=== PATIENT | female | born 1995 | race Caucasian/White ===

== ENCOUNTER 2022-09-21 16:34 | Outpatient (REF) | payer OTHER, SELFPAY ==
[2022-09-21 17:23] LABS: Influenza A PCR NEGATIVE (Negative); Influenza B PCR NEGATIVE (Negative); Resp Syncy Virus RNA Qual PCR NEGATIVE (Negative); SARS COV2 PCR INHOUSE NEGATIVE (Negative)
== END 2022-09-21 16:35 | disposition home or self-care (01) ==
LOC: HO.LNP 16:34
PROVIDERS: Visit Provider Physician Assistant
DX: Z20.822 Contact with and (suspected) exposure to COVID-19 (principal); B34.9 Viral infection, unspecified
CPT/HCPCS: 0241U

== ENCOUNTER 2023-09-04 13:10 | Outpatient (AMB) | payer OTHER, SELFPAY ==
[2023-09-04 13:49] VITALS: BP 110/68; PULSE 85; TEMP 36.5; O2SAT 98; BMI 33.3
--- NOTE | 2023-09-04 13:49 | AM.OFFWIN_ITS ---
Intake Vital Signs 09/04/23 13:49 Height 5 ft Weight 77.281 kg BMI 33.3 BP 110/68 Blood Pressure Location Rt brachial Position Sitting Pulse 85 Pulse Source Pulse Oximeter Temp 97.7 F Temp Source Temporal Artery Scan Pulse Oximetry (%) 98 Oxygen Delivery Method Room Air Intake Visit Reasons: EP, congestion, cough ([phone]) Intake Note: pt is here for c/o cough, congestion, and fatigue 3x weeks, states she thinks she might have a UTI too Patient Tobacco Use Status: Former Tobacco user Allergies amoxicillin Allergy (Unknown, Verified 09/04/23 13:50) rash/SOB as child ciprofloxacin [Cipro] Adverse Reaction (Unknown, Verified 09/04/23 13:50) Diarrhea/GI upset Do you need a note to return to daycare/school/sports/work: Yes HPI HPI Comments History of Present Illness Details 1409 27-year-old female without significant m edical history presenting to the clinic for sick visit patient complaining of fatigue, malaise, myalgias, nonproductive cough, congestion, urinary frequency, urgency and dysuria for the past 3 weeks not improving. Denies sick contacts. Denies fevers, chills, chest pain, shortness of breath, nausea, vomiting, abdominal pain, flank pain, headache, vision changes, dizziness and weakness. Does not think she is Physical exam benign Concerns for viral illness versus bronchitis versus UTI. Unlikely pyelonephritis, obstructing uropathy, kidney stone, acute abdomen. No signs of acute respiratory distress, pneumonia, pulmonary embolism, ACS, cauda equina or epidural abscess Plan at this time will obtain a urine. 1410 Patient's urine with positive nitrates concerning for acute urinary tract infection. Very foul smelling culture sent. Therefore will treat with macrobid for UTI and doxy for uRI considered Keflex however patient has an unknown amoxicillin allergy. Educated patient on diagnosis and treatment plan, answered all question, patient verbalizes understanding. At this time patient will be discharged home, advised to return with new or worsening symptoms. Educated on worrisome signs and symptoms and when to return. At this time I feel comfortable discharge home. PFSH Family History Father No problems noted. Mother Depression with anxiety Social History Housing: House Patient Tobacco Use Status: Former Tobacco user Years Smoked: pt quit 11/2020 service: No Current occupational status: unemployed Review of Systems Const Details: Constitutional : No Weight loss, No Fever, No Chills, + Fatigue, + Malaise ENT/Mouth : No sore throat, No Rhinorrhea Eyes: No Eye Pain, No Swelling, No Redness Cardiovascular : No Chest Pain, No SOB, No Dyspnea on Exertion, No Orthopnea, No Edema, No Palpitations Respiratory : + Cough, No Sputum, No Wheezing Gastrointestinal : No Nausea, No Vomiting, No Diarrhea, No Constipation, No abdominal Pain, No Hematochezia, No Melena Genitourinary : + Dysuria, + Urinary Frequency, No Hematuria, Musculoskeletal : No joint pain, No Myalgias, No Joint Swelling Skin : No Skin Lesions, No rash Neuro : No Weakness, No Numbness, No Dizziness, No Headache Psych : No Anxiety/Panic, No Depression Heme/Lymph: No Bruising, No Bleeding,No Lymphadenopathy Endocrine : No Polyuria, No Polydipsia All other systems reviewed and are negative All systems reviewed & are unremarkable except as noted in HPI and below Physical Exam Vital Signs: Last Vital Signs Temp 97.7 F 09/04/23 13:49 Pulse 85 09/04/23 13:49 BP 110/68 09/04/23 13:49 Pulse Ox 98 09/04/23 13:49 Oxygen Delivery Method Room Air 09/04/23 13:49 BMI result Body Mass Index 33.3 Vital signs stable Appearance: Alert.? Oriented X3.? No acute distress.? Head: Normocephalic, atraumatic, no step-offs or deformities Eyes: Pupils equal, round and reactive to light.? ENT: Pharynx normal.? Neck: Normal inspection.? Neck supple.? CVS: Normal heart rate and rhythm.? Pulses normal.? Respiratory: No respiratory distress.? Breath sounds normal.? Abdomen: Soft and nontender.? Skin: Skin warm and dry.? Normal skin color.? Normal skin turgor.? Extremities: No lower extremity edema.? No calf ttp. 5/5 strength to bilateral upper and lower extremities Back: no CVA tenderness bilaterally Neuro: Oriented X 3.? No motor deficit.? No sensory deficit. CN 2-12 intact Results AMB Urinalysis, Automated UA Leukoctes 0 Claude/uL Last Edit by Merlin Maguire CMA on 09/04/23 14:02 UA Nitrite Positive Last Edit by Merlin Maguire, WARD on 09/04/23 14:02 UA Urobilinogen 0.2 mg/dL Last Edit by Merlin Maguire, WARD on 09/04/23 14 :02 UA Protein 0 mg/dL Last Edit by Merlin Maguire, WARD on 09/04/23 14:02 UA pH 6.0 Last Edit by Merlin Maguire, WARD on 09/04/23 14:02 UA Blood 10 Tim/uL Last Edit by Merlin Maguire, WARD on 09/04/23 14:02 UA Specific [place] 1.015 Last Edit by Merlin Maguire, WARD on 09/04/23 14:02 UA Ketone Negative Last Edit by Merlin Maguire, WARD on 09/04/23 14:02 UA Bilirubin 0 mg/dL Last Edit by Merlin Maguire, WARD on 09/04/23 14:02 UA Glucose 0 mg/dL Last Edit by Merlin Maguire, WARD on 09/04/23 14:02 Results Reviewed Results Reviewed: Laboratory Last Values Urine pH (Auto) 6.0 09/04/23 13:57 Specific [place] (Auto) 1.015 09/04/23 13:57 Urine Protein (Auto) 0 mg/dL 09/04/23 13:57 Glucose (UA)(Auto) 0 mg/dL 09/04/23 13:57 Urine Ketones (Auto) Negative 09/04/23 13:57 Urine Blood (Auto) 10 Tim/uL 09/04/23 13:57 Urine Nitrite (Auto) Positive 09/04/23 13:57 Urine Bilirubin (Auto) 0 mg/dL 09/04/23 13:57 Urine Urobilinogen (Auto) 0.2 mg/dL 09/04/23 13:57 Leukocyte Esterase (Auto) 0 Claude/uL 09/04/23 13:57 Assessment & Plan Assessment & Plan (1) Urinary tract infection: Code(s): N39.0 - Urinary tract infection, site not specified (2) Bronchitis: Code(s): J40 - Bronchitis, not specified as acute or chronic Plan Take your medications as prescribed. If you were prescribed antibiotics today, it is important that you take your medication to their entirety, do not skip any doses, do not finish them early. Follow-up with your primary care provider this week. Return to the emergency department with new or worsening symptoms. Such as fevers, chills, chest pain, shortness of breath, nausea, vomiting, dizziness, headache, vision changes, lethargy In case of emergency call 911 Orders: Orders AMB Urinalysis Automated Today Z13.9 - Encounter for screening, unspecified UA CC w/rflx Micro + Cult Today N39.0 - Urinary tract infection, site not specified Medications: New nitrofurantoin monohyd/m-cryst 100 mg (Macrobid) must administer with a meal/food 100 mg PO BID 5 days 10 caps 0RF albuterol sulfate 90 mcg/actuation 2 puffs inhalation Q6H PRN 6.7 grams 0RF shortness of breath or wheezing doxycycline hyclate 100 mg PO BID 7 days 14 caps 0RF prednisone 20 mg PO DAILY 5 tabs 0RF 5 days Coding Level of Care Code Est Pt Level 3 (87361) Diagnoses Urinary tract infection N39.0 Bronchitis J40
== END 2023-09-04 14:19 | disposition home or self-care (01) ==
PROVIDERS: PCP Nurse Practitioner Family; Visit Provider Physician Assistant
DX: N39.0 Urinary tract infection, site not specified (principal); J40 Bronchitis, not specified as acute or chronic; Z32.02 Encounter for pregnancy test, result negative; R30.0 Dysuria
CPT/HCPCS: 81003; 81025; 99213

== ENCOUNTER 2023-09-04 14:30 | Outpatient (REF) | payer OTHER, SELFPAY ==
[2023-09-04 16:40] LABS: Appearance Urine Hazy; Color Urine Yellow; Glucose Urine UA Negative (Negative); Leukocyte Esterase Urine Negative (Negative); Nitrite Urine Positive (Negative); UMIC TRIGGER UACC YES; Urine Blood Negative (Negative); Urine Ketones Negative (Negative); Urine Protein Negative (Neg-Trace)
[2023-09-04 16:48] LABS: Bacteria Urine 4+ (None Seen); Hyaline Casts Urine 0-2 /LPF (0-2); RBC Urine 0-2 /HPF (0-2); Squamous Epithelial Cell Urine >20 /HPF (0-2); UACC Culture Trigger YES
== END 2023-09-04 14:31 | disposition home or self-care (01) ==
LOC: HO.LAB 14:30
PROVIDERS: Visit Provider Physician Assistant
DX: N39.0 Urinary tract infection, site not specified (principal)
CPT/HCPCS: 81001; 87086; 87088; 87186

== ENCOUNTER 2024-05-05 15:26 | Outpatient (AMB) | payer OTHER, SELFPAY ==
--- NOTE | 2024-05-05 15:55 | A.OFFPC_ITS ---
Vital Signs 05/05/24 15:57 Height 5 ft Weight 174 lb BMI 34.0 BP 108/64 Blood Pressure Location Rt brachial Position Sitting Pulse 87 Pulse Source Pulse Oximeter Pulse Oximetry (%) 98 Oxygen Delivery Method Room Air Intake Visit Reasons: Annual PE Intake Note: Patient here for physical exam. Pap: 2023 Allergies amoxicillin Allergy (Unknown, Verified 05/05/24 15:58) rash/SOB as child ciprofloxacin [Cipro] Adverse Reaction (Unknown, Verified 05/05/24 15:58) Diarrhea/GI upset Tobacco use date assessed: 05/05/24 Dental Screening Dental Screen Date: 05/05/24 Did you have a dental visit in the last 12 months?: No Did you have a dental problem in the last 6 months where you did not have access to dental care?: No Was dental information given to patient?: Patient has dentist HPI Annual PE HPI Details Pt is here for a PE. Will order labs. 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 Pt reports that her skin becomes very irritated/itchy when she shaves any part of her body. She has tried different razors and shaving creams. Will refer to dermatology. denies any pustules/papules after shaving. [facility] Surgical History Hx of section Family History Father No problems noted. Mother Depression with anxiety Social History Housing: House Patient Tobacco Use Status: Former Tobacco user Years Smoked: pt quit 11/2020 service: No Current occupational status: unemployed Cognitive needs: No Hearing needs: No Vision needs: Yes Questionnaire PHQ-9 Over the last 2 weeks, how often have you been bothered by any of the following problems? 34290 - PHQ-9 Billing: Patient declined-do not bill Source: Developed by Drs. Sonu Voss, Reanna Ruth, Rigoberto Garrison and colleagues, with an educational ivon from [employer]. Thrive Questionnaire Date Thrive assessed: 05/05/24 I am a: Patient What is your living situation today?: I have a steady place to live Within the past 12 months, did the food you bought not last and you didn't have the money to get more?: Never true Within the past 12 months, did you worry whether your food would run out before you got money to buy more?: Never true Do you have trouble paying for medicines?: No Do you have trouble getting transportation to medical appointments?: No Do you have trouble paying your heating and electricity bill?: No Do you have trouble taking care of your child, family member or friend?: No Do you have trouble with day-to-day activities such as bathing, preparing meals, shopping, managing finances, etc.?: No Are you currently unemployed and looking for a job?: I choose not to answer this question Are you interested in more education?: No Please select the resources that you would like help with: Housing/Alf Currently or been in a relationship where the following occur: No concerns reported THRIVE Score: 0 AUDIT C Alcohol Use Questionnaire (AUDIT-C) 1. How often do you have a drink containing alcohol?: Never Total Score: 0 Score Reviewed/Action Taken: No HECTOR-7 AMB Questionnaire HECTOR-7 Date HECTOR - 7 assessed: 05/05/24 Feeling nervous, anxious, or on edge: 0 = Not at all Not being able to stop or control worryin = Not at all Worrying too much about different things: 0 = Not at all Trouble relaxin = Not at all Being so restless that it is hard to sit still: 0 = Not at all Becoming easily annoyed or irritable: 0 = Not at all Feeling afraid as if something awful might happen: 0 = Not at all Total HECTOR-7 score (0-4 normal; 5-9 mild; 10-14 moderate; 15-21 severe): 0 Source: Developed by Drs. Sonu Voss, Reanna Ruth, Rigoberto Garrison and colleagues, with an educational ivon from [employer]. HECTOR-7 Assessment Billing HECTOR-7 Assessment Tool: HECTOR-7 Assessment 28211 Review of Systems Const Denies chills and Denies fever(s) Eyes Denies blurry vision ENT Denies vertigo, Denies dizziness and Denies sore throat Card Denies chest pain at rest, Denies chest pain with activity, Denies diaphoresis, Denies dyspnea and Denies dyspnea on exertion Resp Denies cough, Denies dyspnea, Denies dyspnea on exertion and Denies wheezing GI Denies abdominal pain, Denies melena, Denies hematochezia, Denies constipation, Denies diarrhea and Denies loose stools Denies hematuria Musc Denies numbness and Denies tingling Skin/Breast Denies lesions Neuro Denies vertigo, Denies dizziness, Denies numbness and Denies tingling Psych Denies anxiety, Denies depression, Denies homicidal ideation, Denies suicidal ideation and Denies other (substance abuse) Aller/Immun Denies wheezing Physical exam (Primary Care) Vital Signs: Last Vital Signs Pulse 87 05/05/24 15:57 BP 108/64 05/05/24 15:57 Pulse Ox 98 05/05/24 15:57 Oxygen Delivery Method Room Air 05/05/24 15:57 BMI result Body Mass Index 34.0 Tobacco/Smoking Status: Tobacco use Status Tobacco use date assessed 05/05/24 05/05/24 16:01 Patient Tobacco Use Status Former Tobacco user 05/05/24 16:01 Thrive Assessment: Date of Thrive Assessment Date Thrive assessed 05/05/24 05/05/24 16:01 Currently or been in a relationship where the following occur: No concerns reported Const General: cooperative Nutritional Appearance: well nourished Orientation/consciousness: patient oriented x3 HENMT Head: Yes normal to inspection, Yes normocephalic and Yes atraumatic Ears: TM's normal bilaterally Eyes General: appearance normal, both eyes and all related structures Alignment and Position: alignment normal and position normal Neck Neck: Yes normal visual inspection and Yes no lymphadenopathy Thyroid: Thyroid normal Resp Effort & Inspection: normal respiratory effort Auscultation: clear to auscultation bilaterally Cardio Rate: regular rate Rhythm: regular rhythm Heart sounds: S1 normal heart sound present, S2 normal heart sound present and no murmurs GI Palpation (GI): Soft to palpation and nontender Auscultation: normal bowel sounds Skin Rashes: no rashes Neuro General: patient oriented x3, moves all extremities, no focal motor deficits and deep tendon reflexes 2+ bilaterally Romberg Test: Negative Psych Appearance: grossly normal Mental Status: mental status grossly normal Speech and movement: Normal speech and movement present Affect: normal affect Attitude: cooperative Thought process: Normal thought process present Thought content: Normal thought content present Insight: Good insight present (Psych) Judgement: Good judgement present (Psych) Assessment and Plan Assessment & Plan (1) Physical exam: Code(s): Z00.00 - Encounter for general adult medical examination without abnormal findings Plan: Labs ordered (2) Skin irritation: Code(s): R23.8 - Other skin changes Plan: derm Plan The patient agreed to the use of a spanish medical interpreter for this encounter. Scribed for JET Chacon by Telma Cuenca spanish medical interpreter, on 05/05/2024 at 16:05 EST. Orders: Orders Complete Blood Count Auto Diff Today Z00.00 - Encounter for general adult medical examination without abnormal findings Comprehensive [place]. Panel Fast Today Z00.00 - Encounter for general adult medical examination without abnormal findings Lipid Panel Today Z00.00 - Encounter for general adult medical examination without abnormal findings TSH reflex Free T4 Today Z00.00 - Encounter for general adult medical examination without abnormal findings UA CC w/rflx Micro + Cult Today Z00.00 - Encounter for general adult medical ex amination without abnormal findings Referrals Dermatology Referral R23.8 - Other skin changes Coding Level of Care Code Est Pt Prev Care 18-39y(23208) Diagnoses Physical exam Z00.00 Skin irritation R23.8 Additional Codes HECTOR-7 Assessment Billing - HECTOR-7 Assessment Tool: HECTOR-7 Assessment 67475 ([id number])
[2024-05-05 15:57] VITALS: BP 108/64; PULSE 87; O2SAT 98; BMI 34.0
== END 2024-05-05 16:37 | disposition home or self-care (01) ==
PROVIDERS: PCP Nurse Practitioner Family; Visit Provider Nurse Practitioner Family
DX: Z00.00 Encounter for general adult medical examination without abnormal findings (principal); R23.8 Other skin changes
CPT/HCPCS: 99395

== ENCOUNTER 2024-08-23 14:24 | Emergency (ER) | payer OTHER, SELFPAY ==
--- NOTE | ~2024-08-23 | XR_ITS ---
EXAMINATION: XR CHEST CLINICAL INFORMATION: cough COMPARISON: None currently available. TECHNIQUE: PA view of the chest was obtained. FINDINGS: The study is somewhat limited by suboptimal inspiration. No gross focal infiltrate, effusion, or pneumothorax is seen. The cardiovascular structures, mediastinum, diaphragm, bones, and soft tissues appear unremarkable. XR/XR chest 1V IMPRESSION: Somewhat limited study. No gross abnormal finding. Electronically signed by: Jefry Drummond MD 08/23/2024 04:09 PM JOSHUA HODGE
--- NOTE | 2024-08-23 14:28 | ECG_ITS ---
Test Reason : CP Blood Pressure : / mmHG Vent. Rate : 093 BPM Atrial Rate : 093 BPM P-R Int : 138 ms QRS Dur : 072 ms QT Int : 354 ms P-R-T Axes : 062 012 -03 degrees QTc Int : 440 ms Normal sinus rhythm Nonspecific T wave abnormality Abnormal ECG No previous ECGs available Referred By: Nadia Jean Electronically Signed By:LUIS ANTONIO CROW MD
[2024-08-23 14:34] VITALS: BP 118/69; PULSE 90; RESP 18; TEMP 36.6; O2SAT 99; BMI 34.2
--- NOTE | 2024-08-23 14:34 | ED.URI ---
HPI - URI/Sore Throat General Chief Complaint: Abdominal Pain Stated Complaint: chest tightness cough 30 wks preg Time Seen by Provider: 08/23/24 16:03 Source: patient, RN notes reviewed and old records reviewed Mode of arrival: ambulatory Limitations: no limitations History of Present Illness ED Provider: Swati CHUA Narrative: 28-year-old female presents for evaluation of a cough. Patient is approximately 30 weeks . She is followed by [facility] She reports a dry cough for the last 3 weeks. She has some burning chest pain upper abdominal pain when she is coughing. Denies any significant shortness of breath but she reports that she is coughing all day and through the night. Denies any fevers or chills. Her son has a similar cough and tested negative for COVID, influenza, RSV She reports some mild lower abdominal cramping, denies any vaginal bleeding or discharge. She reports that she can still feel her baby moving at baseline Related Data Allergies Allergy/AdvReac Type Severity Reaction Status Date / Time amoxicillin Allergy Unknown rash/SOB Verified 08/23/24 14:36 as child ciprofloxacin [Cipro] AdvReac Unknown Diarrhea/GI Verified 08/23/24 14:36 upset Review of Systems Constitutional: Constitutional: Denies body ache(s), Denies chills, Denies fever(s) and Reports headache(s) Eyes: Eyes: Denies blurry vision ENT: Denies vertigo, Denies dizziness, Reports headache(s) and Denies sore throat Cardiovascular: Cardiovascular: Denies chest pain and Denies dyspnea Respiratory: Respiratory: Reports cough, Reports pain with cough and Denies dyspnea Gastrointestinal: Gastrointestinal: Reports abdominal pain, Denies nausea and Denies vomiting Musculoskeletal: Musculoskeletal: Denies back pain Integumentary/Breasts: Skin/Breast: Denies rash Neurologic: Denies vertigo, Denies dizziness and Reports headache(s) Psychiatric: Psychiatric: Denies anxiety PMFSH Past Medical History Surgical History Hx of section Family History Family History Father No problems noted. Mother Depression with anxiety Social History Social History Housing: House Patient Tobacco Use Status: Former Tobacco user Years Smoked: pt quit 11/2020 Advance Directives: No Advance Directives Information Provided: Yes Do you have a plan to hurt others: No Plan service: No Current occupational status: unemployed Cognitive needs: No Hearing needs: No Vision needs: Yes Physical Exam Vital Signs: Vital Signs: Last Vital Signs Temp 98.1 F 08/23/24 15:30 Pulse 89 08/23/24 15:30 Resp 16 08/23/24 15:30 BP 125/75 08/23/24 15:30 Pulse Ox 97 08/23/24 15:30 O2 Del Method Room Air 08/23/24 15:30 BMI result Body Mass Index 34.2 Const: General: healthy appearing, comfortable, no acute distress, alert and awake Nutritional Appearance: well nourished Orientation/consciousness: patient oriented x3 HEENT: Head: Yes normocephalic and Yes atraumatic Eyes: Eyelids: Yes eyelids normal Conjunctivae: conjunctivae normal Sclerae: sclerae normal Corneas: corneas normal Pupils: Equal, round and reactive pupils present EOM: EOMs intact bilaterally Neck: Neck: Yes full ROM Resp: Other: Faint expiratory wheeze Effort & Inspection: normal respiratory effort, able to speak in complete sentences and not labored Cardio: Rate: regular rate Rhythm: regular rhythm GI: Other: Gravid abdomen Palpation (GI): Soft to palpation, not firm, nontender, no guarding and not rigid Skin: General skin exam: elasticity normal Neuro: General: patient oriented x3 Cranial nerves: Yes Equal, round and reactive pupils present and Yes Bilaterally intact EOM present Cognition (Neuro): normal cognition Course Course Course Narrative: This is a Rapid Medical Exam performed in triage by Nadia Jean PA-C. Full HPI, ROS and PE to be performed by primary ED provider. 28 yo F presenting to the ED c/o productive cough x 1 month, SOB worse on exertion, abdominal pain x2 days and period like cramping x last night. Patient believes abdominal pain is from coughing. denies fever, chills, vaginal bleeding. Admits to urinating with coughing. PE: talking in complete sentences, ambulting w/steady gait Plan: EKG, labs, CXR, viral testing Medical Decision Making Medical Decision Making MDM Narrative: 28 old female presents for evaluation of a cough. She does have a faint wheeze on exam, she denies any history of asthma or COPD. She is a former smoker. She had a chest x-ray ordered in triage which is clear, no evidence of pneumonia, pleural effusions. Her labs are reassuring, she has a mild leukocytosis with a very slight left shift, this is likely reflective an upper respiratory infection. There was no evidence of bacterial infection. Patient's heart tones were performed, she has no vaginal bleeding or discharge, there was no concern for injury to the fetus. She has good follow up with her OBGYN. Plan to discharge the patient is symptomatic care for her cough. Differential Diagnosis Differential Diagnoses: The differential diagnosis associated with the presentation includes Acute cough Upper respiratory infection Pneumonia Lab Data [facility] Lab Attestation statement: I reviewed the patient's lab results. Mild leukocytosis to 11.0 a left shift. No significant anemia. Normal platelet count. No electrolyte abnormalities. Serology negative for COVID, flu, RSV 08/23/24 15:40 08/23/24 15:40 Labs: Lab Results 08/23/24 Range/Units 15:40 WBC 11.0 H (4.8-10.8) X10*3/uL RBC 4.35 (4.20-5.50) X10*6/uL Hgb 12.0 (12.0-16.0) g/dl Hct 36.9 L (37.0-47.0) % MCV 84.8 (80.0-98.0) fL MCH 27.6 (27.0-33.0) pg MCHC 32.5 (31.0-35.0) g/dl RDW 13.6 (11.0-16.0) % Plt Count 308 (160-400) X10*3/uL MPV 9.0 L (9.4-12.3) fL Immature Gran % (Auto) 0.7 H (0.0-0.4) % Neut % (Auto) 74.8 H (45-73) % Lymph % (Auto) 15.3 L (20-40) % [place] % (Auto) 7.6 (2-11) % Eos % (Auto) 1.4 (0-4) % Baso % (Auto) 0.2 (0-2) % Lymph # (Auto) 1.7 (1.2-4.9) X10*3/uL [place] # (Auto) 0.8 (0.1-1.2) X10*3/uL Eos # (Auto) 0.2 (0.0-0.4) X10*3/uL Baso # (Auto) 0.0 (0.0-0.2) X10*3/uL Abs Immat Gran (auto) 0.08 H (0.00-0.03) X10*3/uL Absolute Neuts (auto) 8.2 (2.0-8.3) x10*3/uL Absolute Nucleated RBC 0.000 (0.0-0.012) X10*3/uL Nucleated RBC % (auto) 0.0 (0.0-0.2) /100WBC PT 11.0 (10.9-12.4) SEC INR 0.9 (0.9-1.1) Sodium 136 (135-145) mmol/L Potassium 4.3 (3.3-5.1) mmol/L Chloride 105 (96-108) mmol/L Carbon Dioxide 22 (22-29) mmol/L Anion Gap 13 (12-20) BUN 5 L (9-16) mg/dL Creatinine 0.66 (0.5-1.4) mg/dL Estim Creat Clear Calc 135.7 Estimated GFR > 60 Random Glucose 92 (60-115) mg/dL Calcium 9.6 (8.4-10.2) mg/dL Magnesium 1.6 (1.6-2.6) mg/dL Total Bilirubin 0.8 (0.0-1.0) mg/dL Direct Bilirubin 0.2 (0.0-0.5) mg/dL AST 23 (5-31) U/L ALT 11 (0-31) U/L Alkaline Phosphatase 113 (39-117) U/L Troponin I High Sens < 2.7 (<3.5-17.0) ng/L Total Protein 7.4 (6.5-8.0) g/dL Albumin 3.6 (3.5-5.0) g/dL Lipase 29 (8-78) U/L Urine Color Yellow Urine Appearance Clear Urine pH 6.5 (5.0-9.0) Ur Specific [place] <= 1.005 (1.005-1.025) Urine Protein Negative (Neg-Trace) mg/dL Urine Glucose (UA) Negative (Negative) mg/dL Urine Ketones Negative (Negative) mg/dL Urine Blood Negative (Negative) Urine Nitrite Negative (Negative) Ur Leukocyte Esterase Moderate (2+) H (Negative) Urine RBC 0-2 (0-2) /HPF Urine WBC 11-20 H (0-5) /HPF Ur Squamous Epith Cells 6-10 (0-2) /HPF Urine Bacteria 1+ (None Seen) Hyaline Casts 0-2 (0-2) /LPF Influenza Type A (PCR) NEGATIVE (Negative) Influenza Type B (PCR) NEGATIVE (Negative) RSV RNA Qual (PCR) NEGATIVE (Negative) SARS-CoV-2 RNA (RT-PCR) NEGATIVE (Negative) Independent Interpretation I performed an independent interpretation of an: Plain X-Ray (No focal infiltrates) Radiology Impression Discussion of test interpretation with radiology: I have reviewed the radiologist's reading. Radiologist Impression: FINDINGS: The study is somewhat limited by suboptimal inspiration. No gross focal infiltrate, effusion, or pneumothorax is seen. The cardiovascular structures, mediastinum, diaphragm, bones, and soft tissues appear unremarkable. XR/XR chest 1V IMPRESSION: Somewhat limited study. No gross abnormal finding. Electronically signed by: Jefry Drummond MD 08/23/2024 04:09 PM [facility] Discharge Plan Discharge Clinical Impression: Cough Patient Disposition: Home, Self-Care Instructions: Acute Cough (ED) Additional Instructions: Your workup in the ER was reassuring. Your chest x-ray does not show any abnormalities. Your viral swabs were negative pain Your blood work was reassuring. You may use an aimv-yqg-rmimxdr allergy medication such as Claritin, Zyrtec, or Benadryl. You may try a honey based lozenge You may also try a humidifier next to your bed to help with your cough Follow-up with your OBGYN, return for new or worsening symptoms Print Language: Greek
[2024-08-23 15:30] VITALS: BP 125/75; PULSE 89; RESP 16; TEMP 36.7; O2SAT 97
--- NOTE | 2024-08-23 15:43 | MHC.EDTECH ---
This pct assumed care of Patient at 1500 ,vitals taken ,blood drawn ,urine sample and rsv/covid swab collected all sent to lab .
[2024-08-23 15:44] LABS: MANUAL DIFF FLAG NO
[2024-08-23 15:46] LABS: Basophils Percent Auto 0.2 % (0-2); Eosinophils Absolute Auto 0.2 X10*3/uL (0.0-0.4); Eosinophils Percent Auto 1.4 % (0-4); Hematocrit 36.9 % (37.0-47.0); Imm Gran Abs Auto 0.08 X10*3/uL (0.00-0.03); Imm Gran Pct Auto 0.7 % (0.0-0.4); Lymphocytes Absolute Auto 1.7 X10*3/uL (1.2-4.9); Lymphocytes Percent Auto 15.3 % (20-40); Mean Corpuscular HGB Conc 32.5 g/dl (31.0-35.0); Mean Corpuscular Hemoglobin 27.6 pg (27.0-33.0); Mean Corpuscular Volume 84.8 fL (80.0-98.0); Monocytes Absolute Auto 0.8 X10*3/uL (0.1-1.2); Monocytes Percent Auto 7.6 % (2-11); Neutrophils Absolute Auto 8.2 x10*3/uL (2.0-8.3); Neutrophils Percent Auto 74.8 % (45-73); Platelet Count 308 X10*3/uL (160-400); Red Blood Count 4.35 X10*6/uL (4.20-5.50); Red Cell Distribution Width 13.6 % (11.0-16.0)
--- NOTE | 2024-08-23 15:46 | PC.NURSE ---
a&ox4. vss up to date. pt presents to the ED as a 30 week woman c/o constant nagging somewhat productive cough x 1 month. pt reports one episode of blood tinged sputum but has not had one since. pt also endorsing lower abd cramping x yesterday that was produced d/t increase in cough. denies any vaginal bleeding/discharge/vomiting/diarrhea/sob/chest pain/fever/chills. pt does report nausea but unsure if it is related d/t . pt reports no change in movements by fetus. + heart tones identified w/ doppler. HR = 144bpm approximately. compliant in regards to following w/ OBGYN. denies vitamins. labs and urine obtained/sent to lab by tech. pt currently seems to be resting in no apparent distress. on RA w/o difficulty. no sob/wob noted. respirations even/unlabored. family bedside for support. plan of care ongoing. call parks placed within reach.
[2024-08-23 15:47] LABS: Appearance Urine Clear; Color Urine Yellow; Glucose Urine UA Negative (Negative); Leukocyte Esterase Urine Moderate (2+) (Negative); Nitrite Urine Negative (Negative); PH 6.5 (5.0-9.0); Specific Gravity - Urine <= 1.005 (1.005-1.025); UMIC TRIGGER UACC YES; Urine Blood Negative (Negative); Urine Ketones Negative (Negative); Urine Protein Negative (Neg-Trace)
[2024-08-23 15:53] LABS: Bacteria Urine 1+ (None Seen); Hyaline Casts Urine 0-2 /LPF (0-2); RBC Urine 0-2 /HPF (0-2); UACC Culture Trigger YES
[2024-08-23 15:57] LABS: INTERNATIONAL NORM RATIO 0.9 (0.9-1.1)
[2024-08-23 16:25] LABS: Influenza A PCR NEGATIVE (Negative); Influenza B PCR NEGATIVE (Negative); Resp Syncy Virus RNA Qual PCR NEGATIVE (Negative); SARS COV2 PCR INHOUSE NEGATIVE (Negative)
[2024-08-23 16:29] LABS: Troponin-I High Sensitivity < 2.7 ng/L (<3.5-17.0)
[2024-08-23 16:30] LABS: Alanine Aminotransferase 11 U/L (0-31); Albumin Level 3.6 g/dL (3.5-5.0); Alkaline Phosphatase 113 U/L (39-117); Anion Gap 13 (12-20); Aspartate Amino Transferase 23 U/L (5-31); Bilirubin Direct 0.2 mg/dL (0.0-0.5); Bilirubin Total 0.8 mg/dL (0.0-1.0); Blood Urea Nitrogen 5 mg/dL (9-16); Calcium 9.6 mg/dL (8.4-10.2); Carbon Dioxide 22 mmol/L (22-29); Chloride 105 mmol/L (96-108); Creatinine Clr Calc Pharmacy 135.7; Estimated Glomerular Filt Rate > 60; Glucose Random 92 mg/dL (60-115); Lipase 29 U/L (8-78); Magnesium 1.6 mg/dL (1.6-2.6); Potassium 4.3 mmol/L (3.3-5.1); Sodium 136 mmol/L (135-145); Total Protein 7.4 g/dL (6.5-8.0)
[2024-08-23 16:47] VITALS: BP 111/69; PULSE 84; RESP 16; TEMP 36.9; O2SAT 99
[2024-08-23 16:53] LABS: HCG Quantitative 18310 mIU/mL
[2024-08-23 17:44] VITALS: BP 111/69; PULSE 84; RESP 16; TEMP 36.9; O2SAT 99
== END 2024-08-23 17:45 | disposition home or self-care (01) ==
PROVIDERS: Physician Assistant; Emergency Provider Internal Medicine; PCP Nurse Practitioner Family
DX: O26.893 Other specified pregnancy related conditions, third trimester (principal); R05.9 Cough, unspecified; Z3A.30 30 weeks gestation of pregnancy; Z03.818 Encounter for observation for suspected exposure to other biological agents ruled out
CPT/HCPCS: 0241U; 36415; 71045; 80048; 80076; 81001; 83690; 83735; 84484; 84702; 85025; 85610; 87086; 93005; 99284

== ENCOUNTER → 2024-08-23 14:28 | Outpatient (BNV) | payer OTHER, SELFPAY | PROVIDERS: Emergency Provider Internal Medicine; PCP Nurse Practitioner Family; Visit Provider Internal Medicine Cardiovascular Disease | DX: R07.9 Chest pain, unspecified (principal) | CPT/HCPCS: 93010 ==

== ENCOUNTER 2024-10-28 15:24 | Outpatient (AMB) | payer OTHER, SELFPAY ==
[2024-10-28 15:29] VITALS: BP 120/78; PULSE 76; O2SAT 98; BMI 36.6
--- NOTE | 2024-10-28 15:29 | MHC.PC.OV ---
Vital Signs 10/28/24 15:29 Height 5 ft 4 in Weight 213 lb BMI 36.6 BP 120/78 Blood Pressure Location Rt brachial Position Sitting Pulse 76 Pulse Source Pulse Oximeter Pulse Oximetry (%) 98 Intake Visit Reasons: 6 month follow up Intake Note: pt is here for 6 mon f.up Billing Associate Required: No Accompanied by: Self / Same As Patient Allergies amoxicillin Allergy (Unknown, Verified 10/28/24 15:29) rash/SOB as child ciprofloxacin [Cipro] Adverse Reaction (Unknown, Verified 10/28/24 15:29) Diarrhea/GI upset Tobacco use date assessed: 10/28/24 Dental Screening Dental Screen Date: 10/28/24 Did you have a dental visit in the last 12 months?: Yes Did you have a dental problem in the last 6 months where you did not have access to dental care?: No Was dental information given to patient?: Patient has dentist HPI 6 month follow up HPI Details Chief Complaint Concerns about depression with an upcoming Section. History of Present Illness The patient is a 29-year-old female presenting with concerns regarding her potential upcoming Section and history of depression. She has experienced depression after the of her two previous children, raising her concern about its recurrence with this delivery. Her Section is planned for the coming Sunday. She intends to breastfeed following the delivery. She plans to consult with her OBGYN tomorrow to explore management options as well. She denies any SI or homicidal inclinations and has maintained focus on preventing a recurrence of depression. Social History - Denies any substance abuse. - Currently planning family with upcoming Section. Health Maintenance Review of Systems - Psychiatric: Denies social or homicidal inclinations. Physical Exam General: Cooperative, healthy appearing, comfortable, no acute distress and well developed Orientation: Patient oriented x3 Limitations: No limitations Head: Normal to inspection Ears: Hearing grossly normal bilaterally Nose: Normal external nose present Face and sinus: Normal facial exam Eyes: Appearance normal, both eyes and all related structures Neck: Normal visual inspection and Yes full ROM Respiratory: Normal respiratory effort and able to speak in complete sentences. Clear to auscultation bilaterally Cardiovascular: Regular rate and rhythm. Normal S1 and S2 GI: Normal to inspection. Soft to palpation and nontender Skin: No rashes or lesions noted Neuro: Patient oriented x3 Extremities: Normal to inspection Results Plan - Discuss options for managing potential depression, including the use of sertraline, with her OBGYN. - Proceed with scheduled Section as planned. Patient was informed and verbally consented to the use of an ambient scribe for clinic note documentation during this visit. Discussion Notes During today's visit, we discussed the patient's concerns about a potential recurrence of depression associated with her planned Section. I mentioned the possibility of initiating sertraline to manage these concerns. The patient plans to discuss this further with her OBGYN during her appointment tomorrow. We briefly reviewed her plan to breastfeed . The patient has no suicidal or homicidal ideations, and she is proactive in wanting to manage her mental health effectively. We will follow up with her based on recommendations from her OBGYN and the outcome after delivery. Patient Instructions - Plan to discuss depression management and sertraline with your OBGYN. - Follow your OBGYN's recommendations regarding the Section. - Monitor for any signs of depression or other mood changes and report them promptly. -encouraged pt get her labs drawn [facility] Surgical History Hx of section Family History Father No problems noted. Mother Depression with anxiety Social History Housing: House Patient Tobacco Use Status: Former Tobacco user Years Smoked: pt quit 11/2020 service: No Current occupational status: unemployed Cognitive needs: No Hearing needs: No Vision needs: Yes Questionnaire PHQ-9 Over the last 2 weeks, how often have you been bothered by any of the following problems? 47301 - PHQ-9 Billing: Patient declined-do not bill Source: Developed by Drs. Sonu Voss, Reanna Ruth, Rigoberto Garrison and colleagues, with an educational ivon from [employer]. Thrive Questionnaire Date Thrive assessed: 10/28/24 I am a: Patient What is your living situation today?: I choose not to answer this question Within the past 12 months, did the food you bought not last and you didn't have the money to get more?: I choose not to answer this question Within the past 12 months, did you worry whether your food would run out before you got money to buy more?: I choose not to answer this question Do you have trouble paying for medicines?: I choose not to answer this question Do you have trouble getting transportation to medical appointments?: I choose not to answer this question Do you have trouble paying your heating and electricity bill?: I choose not to answer this question Do you have trouble taking care of your child, family member or friend?: I choose not to answer this question Do you have trouble with day-to-day activities such as bathing, preparing meals, shopping, managing finances, etc.?: I choose not to answer this question Are you currently unemployed and looking for a job?: I choose not to answer this question Are you interested in more education?: I choose not to answer this question Please select the resources that you would like help with: None Currently or been in a relationship where the following occur: I choose not to answer THRIVE Score: 0 AUDIT C Alcohol Use Questionnaire (AUDIT-C) 1. How often do you have a drink containing alcohol?: Never Total Score: 0 Score Reviewed/Action Taken: Yes HECTOR-7 AMB Questionnaire HECTOR-7 Date HECTOR - 7 assessed: 10/28/24 Feeling nervous, anxious, or on edge: 0 = Not at all Not being able to stop or control worryin = Not at all Worrying too much about different things: 0 = Not at all Trouble relaxin = Not at all Being so restless that it is hard to sit still: 0 = Not at all Becoming easily annoyed or irritable: 0 = Not at all Feeling afraid as if something awful might happen: 0 = Not at all Total HECTOR-7 score (0-4 normal; 5-9 mild; 10-14 moderate; 15-21 severe): 0 Source: Developed by Drs. Sonu Voss, Reanna Ruth, Rigoberto Garrison and colleagues, with an educational ivon from [employer]. HECTOR-7 Assessment Billing HECTOR-7 Assessment Tool: HECTOR-7 Assessment 80522 Physical exam (Primary Care) Vital Signs: Last Vital Signs Pulse 76 10/28/24 15:29 BP 120/78 10/28/24 15:29 Pulse Ox 98 10/28/24 15:29 BMI result Body Mass Index 36.6 Tobacco/Smoking Status: Tobacco use Status Tobacco use date assessed 10/28/24 10/28/24 15:30 Patient Tobacco Use Status Former Tobacco user 10/28/24 15:30 Thrive Assessment: Date of Thrive Assessment Date Thrive assessed 10/28/24 10/28/24 15:30 Currently or been in a relationship where the following occur: I choose not to answer Coding Level of Care Code Est Pt Level 3 (28354) Diagnoses depression F53.0 Additional Codes HECTOR-7 Assessment Billing - HECTOR-7 Assessment Tool: HECTOR-7 Assessment 44947 ([id number]) Assessment & Plan Assessment & Plan (1) depression: Code(s): F53.0 - depression Category: Medical Plan .
--- OUTSIDE RECORDS SUMMARY | 2024-10-28 16:21 | XMS_ITS | Continuity of Care Document ---
Author Organization [facility] Address [address] [place] [address]- Care Team Providers Care Scrap Piler Name Role Phone Jamshid VILLAR, Toi Monroe Primary Care Physician [place] [facility] Date(s): 09/16/24 - 10/26/24 [facility] [address] [place] [id number] Attending Physician: Nithya Calvert MD Admitting Physician: Nithya Calvert MD Referring Physician: Maria Antonia Amaro CNM Encounter Type: Pre-OutPatient One Time Allergies, Adverse Reactions, Alerts Substance Criticality Severity Reaction Reaction Severity Status amoxicillin hives Active Adhesive Bandage Act kelin Nuts Active Medications ferrous fumarate 325 mg oral tablet 1 tablet = 325 mg, By Mouth, 3 times a day after meals, # 30 tablet, 0 Refills, Maintenance, 01/24/19 9:16:01 PM EDT, Tablet Start Date: 01/24/19 Status: Ordered Quantity: 30.0 Unit: tablet Repeat number: 1 ibuprofen 600 mg oral tablet 600 mg, 1, tablet, By Mouth, Every 6 hours, # 40 tablet, Refills 0, Tot. Refills 0, Maintenance, 01/24/19 9:08:41 PM EDT, Print Requisition Start Date: 01/24/19 Status: Ordered Quantity: 40.0 Unit: tablet Repeat number: 1 oxyCODONE 5 mg oral capsule 1 capsule = 5 mg, By Mouth, Every 6 hours, PRN for pain, May take 2 tabs for pain >5/10, # 30 capsule, 0 Refills, Maintenance, 01/24/19 9:08:33 PM EDT, Capsule Start Date: 01/24/19 Status: Ordered Quantity: 30.0 Unit: capsule Repeat number: 1 Senna S 50 mg-187 mg oral tablet 2 tablet, By Mouth, Daily at bedtime, # 30 tablet, 0 Refills, Maintenance, 01/24/19 9:08:37 PM EDT, Tablet Start Date: 01/24/19 Status: Ordered Quantity: 30.0 Unit: tablet Repeat number: 1 simethicone 125 mg oral tablet 1 tablet = 125 mg, By Mouth, 3 times a day after meals and bedtime, PRN for gas, # 60 tablet, 0 Refills, Maintenance, 01/24/19 9:08:44 PM EDT, Tablet Start Date: 01/24/19 Status: Ordered Quantity: 60.0 Unit: tablet Repeat number: 1 Tylenol 325 mg oral tablet 325 mg, 1, tablet, By Mouth, Every 4 hours, PRN, Can take 1-2 tablets, not to exceed 4000 mg/day, #50 tablet, Refills 0, Tot. Refills 0, Maintenance, for pain, 01/24/19 9:08:39 PM EDT, Print Requisition Start Date: 01/24/19 Status: Ordered Quantity: 50.0 Unit: tablet Repeat number: 1 Problem List Condition Confirmation Course Effective Dates Status Health St atus Informant Anxiety Confirmed Active Astigmatism Confirmed Active Astigmatism Confirmed Active Chlamydia Confirmed 11/09/18 Active Hx Cholestasis during Confirmed Active Hx Chronic UTI Confirmed Active Depression Confirmed Active GBS carrier Confirmed Active History of depression Confirmed Active History of IBS Confirmed Active IBS (irritable bowel syndrome) Confirmed Active Migraine headache Confirmed Active Migraines Confirmed Active Occasional Migraine headache with aura Confirmed Active Social History Social History Type Response Smoking Status Current every day luz maria adkins entered on: 07/23/16 Sex Sex Representation Female (finding) Patient Care team information Care Team Personnel Name: Toi Breen NP Position: Reference Physician Member Role: PCP Address: [address] [place] [address] Telecom: Care Team Related Persons Name: CRISTAL HEARN Name: GARRY BIRMINGHAM Insurance Providers Guarantor name: YARED HEARN Health Plan Information #: 1 Payer: [employer] Member Number: [id number] Policy Number: NA Group Number: NA Health Plan Information #: 2 Payer: [facility] [employer] POS Member Number: [id number] Policy Number: NA Group Number: NA Health Plan Information #: [address] [facility] Member Number: [id number] Policy Number: NA Group Number: NA
--- OUTSIDE RECORDS SUMMARY | 2024-10-28 16:21 | XMS_ITS | Clinical Summary ---
Author Organization [facility] Address [address] [place] [phone] Phone Care Team Providers Care Sort Line Name Role Phone Unavailable Primary Care Provider Unavailabl e Immunizations Name Administration Dates Next Due DTP 04/19/1994,02/17/1994,1993 DTaP 5 04/19/1999,04/19/1997 HPV, Quadrivalent 12/09/2009,02/26/2009,12/08/19 09 Hep B, ped/adol 10/20/1995,1993,1993 Hib (PRP-T) 10/31/1995, 4,02/28/1994,12/29 IPV 05/31/1999, 4,02/28/1994,12/29 MMR 06/30/1999,10/31/1995 Meningococcal Conj (Menactra) MCV4P 01/04/2007 Td (adult) (MBL), 2 Lf tetan us toxoid, PF, adsorbed 02/17/2005 Tdap 01/04/2007 Family History Relation Name Status Comments Father Alive Father: Alive a nd well, ADD/ADHD Maternal Grandfather Materna l grandfather: Hyperlipidemia Maternal Grandmother Materna l grandmother: Migraines, Asthma Maternal Great-Grandmother m aternal great grand: Diabetes mellitus Mother Alive Mother: Alive a nd well Other Family history of Anxiety Social History Tobacco Use Types Packs/Day Years Used Date Smoking Tobacco: Never Comments:Never smoker Comments Unknown Sex and Gender Information Value Date Recorded Sex Assigned at Not on file Legal Sex Female 4:51 PM EDT Gender Identity Not on file Sexual Orientation Not on file Last Filed Vital Signs Vital Sign Reading Time Taken Comments Blood Pressure 120/72 12/01/2013 12:00 AM EST Pulse 82 03/20/2013 12:00 AM EDT Temperature 36.6 ??C (97.9 ??F) 12/01/2013 12:[address] Respiratory Rate - - Oxygen Saturation 97% 12/15/2010 12:00 AM EDT Inhaled Oxygen Concentration - - Weight 66 kg (145 lb 8 oz) 12/01/2013 12:[address] Height 151.1 cm (4' 11.5 ) 12/01/2013 12:[address] Body Mass Index 28.9 12/01/2013 12:00 AM EST Plan of Treatment Health Maintenance Due Date Last Done Comments Varicella Vaccines (1 of 2 - 13+ 2-dose series) 2006 DTaP,Tdap,and Td Vaccines (7 - Td or Tdap) 01/04/2017 01/04/2007, 02/17/2005, 04/19/1999, Additional history exists Influenza Vaccines (#1) 2024 COVID-19 Vaccine ( season) 2024 Hepatitis B Vaccines Completed 10/20/1995, 1993, 1993 HIB Vaccines Completed 10/31/1995, 04/02, 02/28/1994, Additional history exists IPV Vaccines Completed 05/31/1999, 04/02, 02/28/1994, Additional history exists MMR Vaccines Completed 06/30/1999, 10/31/1995 Meningococcal Vaccine Aged Out 01/04/2007 No shaneka scooby eligible based on patient's age to complete this topic HPV Vaccines Completed 12/09/2009, 01/30, 12/07/2008 Hepatitis A Vaccines Aged Out No long er eligible based on patient's age to complete this topic Men B Vaccine Aged Out No longer elig ible based on patient's age to complete this topic Pneumococcal Vaccine Aged Out No long er eligible based on patient's age to complete this topic Procedures * Due to [place] [employer] law, this organization might not be sharing sensitive test results. Procedure Name Priority Date/Time Associated Diagnosis Comments CHLAMYDIA AND GONORRHEA, AMPLIFIED Routine 12/02/2013 3:39 PM EST from Last 3 Months or Most Recently Relevant to Health Maintenance Results * Due to [facility] law, this organization might not be sharing sensitive test results. * Chlamydia and Gonorrhoea, Amplified (12/02/2013 3:39 PM EST) Pathologist [facility] URINE GC AMP PROBE NEGATIVE [facility] Comment: NO NEISSERIA GONORRHOEAE RNA DETECTED IN THIS PATIENT'S SAMPLE. (REFERENCE RANGE/NORMAL VALUE: NOT DETECTED) NOTE: THIS TEST USES ENVIRONMENTAL HEALTH OFFICER-MEDIATED AMPLIFICATION METHOD TO DETECT rRNA FROM C.TRACHOMATIS AND N.GONORRHOEAE. A NEGATIVE RESULT DOES NOT PRECLUDE INFECTION. THE APTIMA COMBO 2 ASSAY IS NOT INTENDED FOR THE EVALUATION OF SUSPECTED SEXUAL ABUSE OR FOR OTHER MEDICO LEGAL INDICATIONS. THERAPEUTIC FAILURE OR SUCCESS CANNOT BE DETERMINED WITH THE APTIMA COMBO 2 ASSAY SINCE NUCLEIC ACID MAY PERSIST FOLLOWING APPROPRIATE ANTIMICROBIAL THERAPY. IN THE CASE OF A NEGATIVE URINE RESULT, TESTING OF AN ENDOCERVICAL (FEMALE) OR URETHRAL (MALE) SPECIMEN IS RECOMMENDED IF THERE IS HIGH CLINICAL SUSPICION OF INFECTION. Testing performed or reported by [facility], a Service of [facility], [address] [place] [address] Irvin Tee, [employer] URINE CHLAMYDIA AMP PROBE NEGATIVE [facility] Comment: NO CHLAMYDIA TRACHOMATIS RNA DETECTED IN THIS PATIENT'S SAMPLE. (REFERENCE RANGE/NORMAL VALUE: NOT DETECTED) 12/02/2013 3:39 PM EST Narrative [facility] - 12/02/2013 3:39 PM EST URINE CHLAMYDIA GC AMP PROBE Corin Ulloa DO LAB MICROBIOLOGY - GENERAL ORDER PRITI Final Result [facility] [address] [place] [address], from Last 3 Months or Most Recently Relevant to Health Maintenance
--- OUTSIDE RECORDS SUMMARY | 2024-10-28 16:21 | XMS_ITS | Continuity of Care Document ---
Author Organization [facility] Address [address] [place] [phone]- Care Team Providers Care Dispatch Supervisor Name Role Phone Jamshid VILLAR, Toi Monroe Primary Care Physician [place] [facility] [place] - 10/[place]/24 [facility] [address] [place] [id number] Encounter Type: Triage Allergies, Adverse Reactions, Alerts Substance Criticality Severity [...] Position: Reference Physician Member Role: PCP Address: [address] [place] [address]- [place] Telecom: Care Team Related Persons Name: CRISTAL HEARN Name: GARRY BIRMINGHAM Insurance Providers Guarantor name: YARED HEARN Health Plan Information #: 1 Payer: [employer] Member Number: NA Policy Number: NA Group Number: NA
--- OUTSIDE RECORDS SUMMARY | 2024-10-28 16:21 | XMS_ITS | Continuity of Care Document ---
Author Organization [facility] Address [address] [place] [address]- Care Team Providers Care Mail Technician Name Role Phone Jamshid VILLAR, Toi Monroe Primary Care Physician [phone] Encounter [facility] Date(s): 09/16/24 - 10/19/24 [facility] [address] [place] [id number] Attending Physician: Nithya Calvert MD Admitting Physician: [...] Position: Reference Physician Member Role: PCP Address: [address] [place] [address] Telecom: Care Team Related Persons Name: CRISTAL HEARN Name: GARRY BIRMINGHAM Insurance Providers Guarantor name: YARED HEARN Health Plan Information #: 1 Payer: [employer] Member Number: [id number] Policy Number: NA Group Number: NA Health Plan Information #: 2 Payer: [facility] HMO POS Member Number: [id number] Policy Number: NA Group Number: NA Health Plan Information #: 3 Payer: [facility] Member Number: [id number] Policy Number: NA Group Number: NA
--- OUTSIDE RECORDS SUMMARY | 2024-10-28 16:21 | XMS_ITS | Encounter Summary ---
Author Organization [facility] Address [address] [place] [address] Phone Care Team Providers Care Woodworking Craftsman Name Role Phone Corin Ulloa DO Primary Care Provider [phone] Encounter Details Date Type Department Care Team (Late st Contact Info) Description 08/14/2013 Documentation EM Family Medicine [address] [place] [address] Family Medicine, Physician [address] [place], [place] [id number] Social History Tobacco Use Types Packs/Day Years Used Date Smoking Tobacco: Never Assessed Comments Unknown Sex and Gender Information Value Date Recorded Sex Assigned at Not on file Legal Sex Female 4:51 PM EDT Gender Identity Not on file Sexual Orientation Not on file documented as of this encounter Plan of Treatment Not on file documented as of this encounter Visit Diagnoses Not on filedocumented in this encounter Care Teams Woodworking Craftsman Relationship Specialty Start Date End Date Corin Ulloa DO [address] [place] [address] PCP - General 05/11/17 01/07/23 documented as of this encounter
--- OUTSIDE RECORDS SUMMARY | 2024-10-28 16:21 | XMS_ITS | Encounter Summary ---
Author Organization [facility] Address [address] [place] [address] Phone Care Team Providers Care Cryogenic Transport Driver Name Role Phone Corin Ulloa DO Primary Care Provider [phone] Encounter Details Date Type Department Care Team (Late st Contact Info) Description 05/17/2017 Conversion Encounter [facility] [address] [place] [address] Social History Tobacco Use Types Packs/Day Years [...] on filedocumented in this encounter Care Teams Cryogenic Transport Driver Relationship Specialty Start Date End Date Corin Ulloa DO [address] [place] [address] PCP - General 05/11/17 01/07/23 documented as of this encounter
== END 2024-10-28 16:28 | disposition home or self-care (01) ==
PROVIDERS: PCP Nurse Practitioner Family; Visit Provider Nurse Practitioner Family
DX: F53.0 Postpartum depression (principal)

== ENCOUNTER → 2024-10-28 15:24 | Outpatient (BNVA) | payer OTHER, SELFPAY | PROVIDERS: PCP Nurse Practitioner Family; Visit Provider Nurse Practitioner Family | DX: F53.0 Postpartum depression (principal) | CPT/HCPCS: 96127; 99212 ==

== ENCOUNTER 2025-02-25 08:43 | Outpatient (AMB) | payer OTHER, SELFPAY ==
[2025-02-25 08:45] VITALS: BP 104/66; PULSE 81; RESP 18; TEMP 36.6; O2SAT 98; BMI 31.2
--- NOTE | 2025-02-25 08:45 | A.OFFPC_ITS ---
Vital Signs 02/25/25 08:45 Height 5 ft 4 in Weight 182 lb BMI 31.2 BP 104/66 Blood Pressure Location Rt brachial Position Sitting Respiration 18 Pulse 81 Pulse Source Pulse Oximeter Temp 97.9 F Temp Source Oral Pulse Oximetry (%) 98 Oxygen Delivery Method Room Air Intake Visit Reasons: 4m f/u Intake Note: Pt is here today for 4 months follow up visit. Allergies amoxicillin Allergy (Unknown, Verified 02/25/25 09:18) rash/SOB as child ciprofloxacin [Cipro] Adverse Reaction (Unknown, Verified 02/25/25 09:18) Diarrhea/GI upset Medication List - Last Reconciled 02/25/25 by BONNY Walker- No Known Home Meds Tobacco use date assessed: 02/25/25 Dental Screening Dental Screen Date: 10/28/24 HPI 4m f/u HPI Details Chief Complaint The patient presents for follow-up regarding depression and reports improvement. History of Present Illness The patient is a 29-year-old female presenting for follow-up regarding depression. She reports that her symptoms have improved, influenced by the seasonal transition to more favorable weather and her current status in general. Despite being prescribed Lexapro by her OBGYN, she has yet to commence the medication and was advised to initiate treatment at a 5 mg dose. She denies any suicidal or homicidal thoughts at this time. In terms of her migraines, the patient reports a decrease in frequency. While she does experience migraines with aura on occasion, she notes an overall improvement in her condition. No specific timeline for these changes was provided. Additionally, she expressed the need to obtain fasting laboratory tests soon and acknowledged her status as obese. However, no detailed weight management strategy was discussed during this visit. Social History - The patient is not currently enrolled in university, which she feels has had a positive effect on her mental health. - She acknowledges being obese but no sp ecific dietary or exercise regimen was discussed. Health Maintenance - Encouraged to undergo fasting laborato ry tests in the near future. Review of Systems - Psychiatric: Reports improvement in po stpartum depression; denies suicidal or homicidal ideation. - Neurological: Reports improved migrain e frequency; experiences migraines with aura occasionally. Physical Exam General: Cooperative, healthy appearing, comfortable, no acute distress and well developed, obese Orientation: Patient oriented x3 Limitations: No limitations Head: Normal to inspection Ears: Hearing grossly normal bilaterally Nose: Normal external nose present Face and sinus: Normal facial exam Eyes: Appearance normal, both eyes and all related structures Neck: Normal visual inspection and Yes full ROM Respiratory: Normal respiratory effort and able to speak in complete sentences. Clear to auscultation bilaterally Cardiovascular: Regular rate and rhythm. Normal S1 and S2 GI: Normal to inspection. Soft to palpation and nontender Skin: No rashes or lesions noted Neuro: Patient oriented x3 Extremities: Normal to inspection Results Plan I recommend the patient begin taking Lexapro at a 5 mg dose as prescribed to support her ongoing improvement in managing depression. Her mental health appears positively influenced by current life changes. The reduction in migraine frequency is notable, and no adjustments to her current management are necessary at this time. I advised fasting laboratory tests to assess her metabolic status, given her obesity, and will encourage further discussions on lifestyle modifications for weight management in future visits. Discussion Notes I discussed with the patient the importance of starting Lexapro at a 5 mg dosage as recommended by her OBGYN to aid in managing depression. We reviewed her improvements in mental health due to seasonal changes and lifestyle adjustments, emphasizing the value of continued monitoring. The reduction in migraine frequency was acknowledged, and I advised that no immediate changes are needed unless symptoms worsen. The patient was encouraged to undergo fasting labs to assess her metabolic health due to obesity and to consider lifestyle adjustments for weight management. We will revisit these discussions in subsequent visits to ensure comprehensive care. Patient Instructions - Begin taking Lexapro 5 mg as prescribe d by your OBGYN. - Continue monitoring your mental health and report any changes in symptoms. - Undergo fasting laboratory tests soon as discussed. - Consider lifestyle changes for weight management, which we can discuss further in future visits. [facility] Surgical History Hx of section Family History Father No problems noted. Mother Depression with anxiety Social History Housing: House Patient Tobacco Use Status: Former Tobacco user Years Smoked: pt quit 11/2020 e-Cigarette/Vaping Use: Never Used service: No Current occupational status: unemployed Cognitive needs: No Hearing needs: No Vision needs: Yes Questionnaire PHQ-9 Over the last 2 weeks, how often have you been bothered by any of the following problems? 1. Little interest or pleasure in doing things: not at all 2. Feeling down, depressed, or hopeless: not at all 3. Trouble falling or staying asleep, or sleeping too much: not at all 4. Feeling tired or having little energy: not at all 5. Poor appetite or overeating: not at all 6. Feeling bad about yourself - or that you are a failure or have let yourself or your family down: not at all 7. Trouble concentrating on things, such as reading the newspaper or watching television: not at all 8. Moving or speaking so slowly that other people could have noticed. Or the opposite - being so fidgety or restless that you have been moving around a lot more than usual: not at all 9. Thoughts that you would be better off or of hurting yourself in some way: not at all Total score: 0 Depression Screening Interpretation: Negative Depression Screening Done: Yes 34284 - PHQ-9 Billing: Yes Source: Developed by Drs. Sonu Voss, Reanna Ruth, Rigoberto Garrison and colleagues, with an educational ivon from [employer]. Thrive Questionnaire Date Thrive assessed: 10/28/24 Do you have trouble getting transportation to medical appointments?: I choose not to answer this question Do you have trouble paying your heating and electricity bill?: I choose not to answer this question Do you have trouble taking care of your child, family member or friend?: I choose not to answer this question Do you have trouble with day-to-day activities such as bathing, preparing meals, shopping, managing finances, etc.?: I choose not to answer this question Are you currently unemployed and looking for a job?: I choose not to answer this question Are you interested in more education?: I choose not to answer this question Please select the resources that you would like help with: None Currently or been in a relationship where the following occur: I choose not to answer THRIVE Score: 0 AUDIT C Alcohol Use Questionnaire (AUDIT-C) 1. How often do you have a drink containing alcohol?: Never Total Score: 0 HECTOR-7 AMB Questionnaire HECTOR-7 Date HECTOR - 7 assessed: 02/25/25 Feeling nervous, anxious, or on edge: 0 = Not at all Not being able to stop or control worryin = Not at all Worrying too much about different things: 0 = Not at all Trouble relaxin = Not at all Being so restless that it is hard to sit still: 0 = Not at all Becoming easily annoyed or irritable: 0 = Not at all Feeling afraid as if something awful might happen: 0 = Not at all Total HECTOR-7 score (0-4 normal; 5-9 mild; 10-14 moderate; 15-21 severe): 0 Source: Developed by Drs. Sonu Voss, Reanna Ruth, Rigoberto Garrison and colleagues, with an educational ivon from [employer]. Physical exam (Primary Care) Vital Signs: Last Vital Signs Temp 97.9 F 02/25/25 08:45 Pulse 81 02/25/25 08:45 Resp 18 02/25/25 08:45 BP 104/66 02/25/25 08:45 Pulse Ox 98 02/25/25 08:45 Oxygen Delivery Method Room Air 02/25/25 08:45 BMI result Body Mass Index 31.2 Tobacco/Smoking Status: Tobacco use Status Tobacco use date assessed 02/25/25 02/25/25 08:51 Patient Tobacco Use Status Former Tobacco user 02/25/25 08:51 e-Cigarette/Vaping Use Never Used 02/25/25 08:51 PHQ-9: PHQ-9 Score PHQ-9: Total score 0 02/25/25 08:51 Depression Screening Interpretation: Negative Thrive Assessment: Date of Thrive Assessment Date Thrive assessed 10/28/24 02/25/25 08:51 Currently or been in a relationship where the following occur: I choose not to answer Coding Level of Care Code Est Pt Level 3 (77704) Diagnoses depression F53.0 Additional Codes PHQ-9 - 99845 - PHQ-9 Billing: Yes ([id number]) Assessment & Plan Assessment & Plan (1) depression: Code(s): F53.0 - depression Category: Medical Plan . Orders: Orders Complete Blood Count Auto Diff Today F53.0 - depression TSH reflex Free T4 Today F53.0 - depression Comprehensive [place]. Panel Fast Today F53.0 - depression UA CC w/rflx Micro + Cult Today F53.0 - depression Lipid Panel Today F53.0 - depression
--- OUTSIDE RECORDS SUMMARY | 2025-02-25 09:03 | XMS_ITS | Encounter Summary ---
Author Organization [facility] Address [address] [place] [address] Phone Care Team Providers Care Supply Chain Planner Name Role Phone Corin Ulloa DO Primary Care Provider [phone] Encounter Details Date Type Department Care Team (Late st Contact Info) Description 08/14/2013 Documentation EM Family Medicine [address] [place] [address] Family Medicine, Physician [address] [place], [place] [id number] Social History Tobacco Use Types Packs/Day Years [...] on filedocumented in this encounter Care Teams Supply Chain Planner Relationship Specialty Start Date End Date Corin Ulloa DO [address] [place] [address] PCP - General 05/11/17 01/07/23 documented as of this encounter
== END 2025-02-25 09:54 | disposition home or self-care (01) ==
LOC: HO.HMCC 08:44
PROVIDERS: PCP Nurse Practitioner Family; Visit Provider Nurse Practitioner Family
DX: F53.0 Postpartum depression (principal)

== ENCOUNTER → 2025-02-25 08:43 | Outpatient (BNVA) | payer OTHER, SELFPAY | PROVIDERS: PCP Nurse Practitioner Family; Visit Provider Nurse Practitioner Family | DX: F53.0 Postpartum depression (principal); Z13.31 Encounter for screening for depression | CPT/HCPCS: 96127; 99212 ==

== ENCOUNTER 2025-07-16 10:52 | Outpatient (AMB) | payer OTHER, SELFPAY ==
[2025-07-16 11:00] VITALS: BP 110/66; PULSE 88; TEMP 36.7; O2SAT 98; BMI 34.7
--- NOTE | 2025-07-16 11:00 | MHC.OFFWIV ---
Intake Vital Signs 07/16/25 11:00 Height 5 ft 2 in Weight 190 lb BMI 34.7 BP 110/66 Blood Pressure Location Rt brachial Position Sitting Pulse 88 Pulse Source Pulse Oximeter Temp 98.1 F Temp Source Oral Pulse Oximetry (%) 98 Oxygen Delivery Method Room Air Intake Visit Reasons: EP UTI Patient Tobacco Use Status: Former Tobacco user Allergies amoxicillin Allergy (Unknown, Verified 07/16/25 11:08) rash/SOB as child ciprofloxacin (Cipro) Adverse Reaction (Unknown, Verified 07/16/25 11:08) Diarrhea/GI upset Do you need a note to return to daycare/school/sports/work: No HPI HPI Comments History of Present Illness Details History - The patient is a 29-year-old female presenting with symptoms suggestive of a urinary tract infection. - Symptoms include dark, smelly urine and burning sensation during urination, which started approximately a week ago. - The patient reports taking cranberry pills, which seem to alleviate symptoms. - There is no bleeding, but a slight change in discharge color was noted, with no associated odor. - The patient has a history of allergies to amoxicillin and ciprofloxacin, and previously used macrobid for UTI treatment. - She has not been drinking a lot of water. - She denies fever, chills, CP, SOB, abd pain, vaginal bleeding, back pain, or hematuria. Physical Exam General: Cooperative, healthy appearing, comfortable, no acute distress and well developed Cardiac: Normal S1 and S2. RRR, no M/R/G noted. Respiratory: Normal respiratory effort and able to speak in complete sentences. Clear to auscultation bilaterally. No w/r/r noted. Skin: No rashes or lesions noted. GI: Normal inspection. Normal BS noted. Soft, non-tender, non-distended. No TTP of all 4 quadrants. No guarding or rebound tenderness noted. Back: Negative CVA bilaterally Patient was informed and verbally consented to the use of an ambient scribe for clinic note documentation during this visit. [facility] Surgical History Hx of section Family History Father No problems noted. Mother Depression with anxiety Social History Housing: House Patient Tobacco Use Status: Former Tobacco user Years Smoked: pt quit 11/2020 e-Cigarette/Vaping Use: Never Used service: No Current occupational status: unemployed Cognitive needs: No Hearing needs: No Vision needs: Yes Review of Systems Const All systems reviewed & are unremarkable except as noted in HPI and below Physical Exam Vital Signs: Last Vital Signs Temp 98.1 F 07/16/25 11:00 Pulse 88 07/16/25 11:00 BP 110/66 07/16/25 11:00 Pulse Ox 98 07/16/25 11:00 Oxygen Delivery Method Room Air 07/16/25 11:00 BMI result Body Mass Index 34.7 Results AMB Urinalysis, Automated UA Leukoctes 0 Claude/uL Last Edit by Merlin Maguire CMA on 07/16/25 11:26 UA Nitrite Positive Last Edit by Merlin Maguire CMA on 07/16/25 11:26 UA Urobilinogen 0.2 mg/dL Last Edit by Merlin Maguire CMA on 07/16/25 11:26 UA Protein 0 mg/dL Last Edit by Merlin Maguire CMA on 07/16/25 11:26 UA pH 6.0 Last Edit by Merlin Maguire CMA on 07/16/25 11:26 UA Blood 0 Tim/uL Last Edit by Merlin Maguire CMA on 07/16/25 11:26 UA Specific [place] 1.015 Last Edit by Merlin Maguire CMA on 07/16/25 11:26 UA Ketone Negative Last Edit by Merlin Maguire CMA on 07/16/25 11:26 UA Bilirubin 0 mg/dL Last Edit by Merlin Maguire CMA on 07/16/25 11:26 UA Glucose 0 mg/dL Last Edit by Merlin Maguire CMA on 07/16/25 11:26 Results Reviewed Results Reviewed: Laboratory Last Values Urine pH (Auto) 6.0 07/16/25 11: Specific [place] (Auto) 1.015 07/16/25 11:25 Urine Protein (Auto) 0 mg/dL 07/16/25 11:25 Glucose (UA)(Auto) 0 mg/dL 07/16/25 11:25 Urine Ketones (Auto) Negative 07/16/25 11:25 Urine Blood (Auto) 0 Tim/uL 07/16/25 11:25 Urine Nitrite (Auto) Positive 07/16/25 11:25 Urine Bilirubin (Auto) 0 mg/dL 07/16/25 11:25 Urine Urobilinogen (Auto) 0.2 mg/dL 07/16/25 11:25 Leukocyte Esterase (Auto) 0 Claude/uL 07/16/25 11:25 Assessment & Plan Assessment & Plan (1) Dysuria: Code(s): R30.0 - Dysuria Plan Most likely UTI vs BV vs yeast UA in the office plan - will order a urine culture - will also add a vaginal panel to r/o yeast or BV - start Macrobid BID for 5 days - drink lots of fluids - can continue with cranberry pills - will call with the results and adjust the treatment accordingly - follow up with PCP Orders: Orders AMB Urinalysis Automated Today Z13.9 - Encounter for screening, unspecified Urine Culture Today N39.0 - Urinary tract infection, site not specified Bacterial Vaginosis Panel Today R30.0 - Dysuria Medications: New nitrofurantoin monohyd/m-cryst 100 mg (Macrobid) must administer with a meal/food 100 mg PO Q12H 10 caps 0RF 5 days Coding Level of Care Code Est Pt Level 3 (61926) Diagnoses Dysuria R30.0
--- OUTSIDE RECORDS SUMMARY | 2025-07-16 13:43 | XMS_ITS | Encounter Summary ---
Author Organization [facility] Address [address] [place] [address] Phone Care Team Providers Care Biological Technical Officer Name Role Phone Corin Ulloa DO Primary Care Provider [phone] Encounter Details Date Type Department Care Team (Late st Contact Info) Description 08/14/2013 Documentation EM Family Medicine [address] [place] [address] Family Medicine, Physician [address] [place], [place] [phone] Social History Tobacco Use Types Packs/Day Years [...] on filedocumented in this encounter Care Teams Biological Technical Officer Relationship Specialty Start Date End Date Corin Ulloa DO [address] [place] [address] PCP - General 05/11/17 01/07/23 documented as of this encounter
--- OUTSIDE RECORDS SUMMARY | 2025-07-16 13:43 | XMS_ITS | Clinical Summary ---
Author Organization [facility] Address [address] [place] [address] Phone Care Team Providers Care Anode Worker Name Role Phone Unavailable Primary Care Provider Unavailabl e Immunizations Immunization Administration Dates Next Due DTP 04/19/1994,02/17/1994,1993 DTaP [...] 82 03/20/2013 12:00 AM EDT Temperature 36.6 C (97.9 F) 12/01/2013 12:00 AM EST Respiratory Rate - - Oxygen Saturation 97% [...] 04/19/1999, Additional history exists Influenza Vaccines (#1) 2025 COVID-19 Vaccine ( season) 2025 Hepatitis B Vaccines Completed 10/20/1995, 1993, 1993 [...] complete this topic Procedures * Due to [place] state law, this organization might not be sharing sensitive test results. Procedure Name Priority Date/Time Associated Diagnosis Comments CHLAMYDIA AND GONORRHEA, AMPLIFIED Routine 12/02/2013 3:39 PM EST from Last 3 Months or Most Recently Relevant to Health Maintenance Results * Due to [place] state law, this organization might not be sharing sensitive test results. * Chlamydia and Gonorrhoea, Amplified (12/02/2013 3:39 PM EST) URINE GC AMP PROBE NEGATIVE [facility] Comment: NO NEISSERIA GONORRHOEAE RNA DETECTED IN THIS PATIENT'S SAMPLE. (REFERENCE RANGE/NORMAL VALUE: NOT DETECTED) NOTE: THIS TEST USES CERTIFIED DIABETES EDUCATOR-MEDIATED AMPLIFICATION METHOD TO DETECT rRNA FROM C.TRACHOMATIS [...] OF INFECTION. Testing performed or reported by [facility], a Service of [facility], [address] [place] [address] Irvin Tee, Wax Machine Operator URINE CHLAMYDIA AMP PROBE NEGATIVE [facility] Comment: NO CHLAMYDIA TRACHOMATIS RNA DETECTED IN THIS PATIENT'S SAMPLE. (REFERENCE RANGE/NORMAL VALUE: NOT DETECTED) 12/02/2013 3:39 PM EST Narrative [facility] - 12/02/2013 3:39 PM EST URINE CHLAMYDIA GC AMP PROBE us Corin Ulloa DO LAB MICROBIOLOGY - GENERAL ORDER PRITI Final Result [facility] [address] [place] [address], [place] from Last 3 Months or Most Recently Relevant to Health Maintenance
--- OUTSIDE RECORDS SUMMARY | 2025-07-16 13:43 | XMS_ITS | Encounter Summary ---
Author Organization [facility] Address [address] [place] [phone] Phone Care Team Providers Care Film Processor Name Role Phone Corin Ulloa DO Primary Care Provider [phone] Encounter Details Date Type Department Care Team (Late st Contact Info) Description 05/17/2017 Conversion Encounter [facility] [address] [place] [address] Social History Tobacco Use Types Packs/Day Years [...] on filedocumented in this encounter Care Teams Film Processor Relationship Specialty Start Date End Date Corin Ulloa DO [address] [place] [address] PCP - General 05/11/17 01/07/23 documented as of this encounter
== END 2025-07-16 11:45 | disposition home or self-care (01) ==
PROVIDERS: PCP Nurse Practitioner Family; Visit Provider Physician Assistant Medical
DX: R30.0 Dysuria (principal); Z13.9 Encounter for screening, unspecified

== ENCOUNTER 2025-07-16 10:52 | Outpatient (REF) | payer OTHER, SELFPAY ==
[2025-07-16 15:10] LABS: Bacterial Vaginosis PCR NEGATIVE (Negative); Candida Group PCR DETECTED (Not Detect); Candida glab krusei PCR NOT DETECTED (Not Detect); Trichomonas vaginalis PCR NOT DETECTED (Not Detect)
== END 2025-07-16 10:53 | disposition home or self-care (01) ==
LOC: HO.LAB 10:52
PROVIDERS: PCP Nurse Practitioner Family; Visit Provider Physician Assistant Medical
DX: R30.0 Dysuria (principal); Z13.89 Encounter for screening for other disorder; Z20.2 Contact with and (suspected) exposure to infections with a predominantly sexual mode of transmission
CPT/HCPCS: 81003; 81515; 87086; 87088; 87186; 99212